=== PATIENT | female | born 1965 | race African-American/Black ===

== ENCOUNTER 2016-12-08 12:42 | Emergency (ER) | payer SELFPAY ==
[~2016-12-08] VITALS: Ht 152.4 cm; Wt 61.4 kg
[2016-12-08 14:50] VITALS: BP 124/82
== END 2016-12-08 15:17 | disposition left against medical advice (07) ==
LOC: EMS 12:48
DX: B34.9 Viral infection, unspecified (principal)
CPT/HCPCS: 99281